=== PATIENT | female | born 1990 | race African-American/Black ===

== ENCOUNTER 2018-06-16 11:33 | Emergency (ER) | payer OTHER ==
[2018-06-16 12:50] LABS: #Basophils 0.1 thou/uL (0.0-0.2); #Eosinphils 0.2 thou/uL (0.0-0.7); #Lymphocytes 3.8 thou/uL (1.20-3.40); #Monocytes 0.9 thou/uL (0.11-0.59); #Neutrophils 3.4 thou/uL (1.40-6.50); %Basophils 1.1 % (0.0-1.0); %Eosinophils 2.9 % (0.0-10.0); %Lymphocytes 45.8 % (21.0-51.0); %Monocytes 10.1 % (0.0-10.0); %Neutrophils 40.1 % (42.0-75.0); Mean Corpuscular Hemoglobin 26.9 pg (27.0-31.0); Mean Corpuscular Volume 84.2 fL (78.0-98.0); Mean Platelet Volume 6.3 fL (7.4-10.4); Platelet Count 502 thou/uL (130-400); RBC Distribution Width 12.7 % (11.5-14.5); Red Blood Cell (RBC) Count 4.47 mill/uL (4.20-5.40); White Blood Cell (WBC) Count 8.4 thou/uL (4.8-10.8)
[2018-06-16 12:55] LABS: Bilirubin Negative (Negative); Blood, Urine Large (Negative); Clarity CLOUDY (Clear); Glucose, Urine (Dipstick) Negative (Negative); Leukocyte Trace (Negative); Nitrite Negative (Negative); Protein, Urine (Dipstick) 30 mg/dL (Neg-Trace); Specific Gravity, Urine 1.024 (1.002-1.036)
[2018-06-16 13:00] LABS: Bacteria/HPF Rare-Few HPF (None Seen); Hyaline Casts/LPF 0-3 HYALINE CAST LPF (0-3 Hyaline); Pathc Cast-AUWi Flag 0.29 (0-2.49); RBC/HPF GREATER THAN 50-TNTC HPF (0-3)
[2018-06-16 13:06] LABS: Renal Epithelial None Seen HPF (0-3); Transitional Epithelial NONE SEEN HPF (0-3)
--- NOTE | 2018-06-16 15:02 | ULT ---
PELVIC ULTRASOUND: Date: 06/16/18 HISTORY: Vaginal bleeding in a patient with positive . Quantitative beta HCG level is 498.7. FINDINGS: Multiple transabdominal and endovaginal sonographic images of the pelvis are obtained. The uterus measures 8.5 cm x 4.5 cm x 6.7 cm. There is a fluid collection seen within the endometrial canal. A pole or yolk sac are not visualized. The mean sac diameter is approximately 0.62 cm, which corresponds to gestational age by ultrasound of 5 weeks/2 days. The right ovary measures 3.5 cm x 1.8 cm x 2.2 cm. The left ovary measures 3.7 cm x 2.1 cm x 2.8 cm. There is an anechoic structure seen within the left ovary measuring approximately 1.7 cm, which may r epresent a small left ovarian cyst. There is a hypoechoic area within the right ovary measuring 1.9 c m in maximal dimensions. This could potentially represent corpus luteal cysts, but continued follow-u p is recommended. Doppler evaluation of each ovary with spectral analysis and color flow evaluation demonstrates arteri al flow in each ovary. No free fluid is seen in the cul-de-sac. IMPRESSION: 1. Fluid collection within the endometrial canal. A pole or yolk sac are not visualized to def initely suggest that this represents an intrauterine gestation. While ectopic cannot be exc luded based on this examination, findings are probably related to very early intrauterine gestation. Gestational age by mean sac diameter is 5 weeks/2 days. Continued follow-up is recommended, as well a s follow-up beta HCG level. 2. Small left ovarian cyst with hypoechoic cystic appearing structure in the right ovary which may r epresent corpus luteal cyst. This can be re-evaluated on follow-up exam. POS: JESICA
[2018-06-19 00:55] LABS: Chlamydia by PCR Not Detected (NotDetected); GC by PCR Not Detected (NotDetected)
== END 2018-06-16 13:50 | disposition home or self-care (01) ==
LOC: ERS 11:33
DX: O20.0 Threatened abortion (principal); Z3A.01 Less than 8 weeks gestation of pregnancy
CPT/HCPCS: 36415; 76856; 81003; 81015; 84702; 85025; 86900; 86901; 87480; 87491; 87510; 87591; 87660

== ENCOUNTER 2018-11-06 15:56 | Emergency (ER) | payer OTHER ==
[2018-11-06 17:18] LABS: Bacteria/HPF None Seen HPF (None Seen); Bilirubin Negative (Negative); Blood, Urine 2+ (Negative); Clarity Clear (Clear); Glucose, Urine (Dipstick) Normal (Negative); Leukocyte Negative Leu/uL (Negative); Nitrite Negative (Negative); Protein, Urine (Dipstick) 20 mg/dL (Neg-Trace); RBC/HPF 21-50 HPF (0-3); Urobilinogen Normal mg/dL (Less than 2); WBC/HPF 0-3 HPF (0-3)
[2018-11-06 18:05] LABS: Pregnancy Test - Urine (BHCG) Negative (Negative); Pregu Control Background? CLEAR/WHITE (CLR/WHITE); Pregu Control Bar Appear? YES (CONTROL BAR); Specific Gravity 1.028 (1.002-1.036)
== END 2018-11-06 18:16 | disposition home or self-care (01) ==
LOC: ERS 15:56
DX: R10.9 Unspecified abdominal pain (principal)
CPT/HCPCS: 81003; 81015; 81025; 99284

== ENCOUNTER 2019-06-18 15:08 | Outpatient (CLI) | payer OTHER | END 2019-06-18 15:09 | disposition home or self-care (01) | LOC: CTENTCT 15:08 | PROVIDERS: ATTEND Otolaryngology Plastic Surgery within the Head & Neck | DX: J01.91 Acute recurrent sinusitis, unspecified (principal) | CPT/HCPCS: 70486 ==

== ENCOUNTER 2019-06-26 10:46 | Day surgery (SDC) | payer OTHER ==
[~2019-06-26 10:46] MED LIST: Dexamethasone 20 MG/5 ML VIAL ONE; Glycopyrrolate 0.2 MG/ML 5 ML SYRINGE ONE; Lidocaine 1% PF 5 ML VIAL ONE; Ondansetron PF 4 MG/2 ML Vial ONE; PROPOFOL 200 MG/20 ML VIAL ONE; Rocuronium Bromide 10 MG/ML (10ML VIAL) ONE
[2019-06-26] MEDS ORDERED: AFRIN NASAL MIST 15 ML BOT ONE ×2 (11:15→12:34)
[2019-06-26 11:45] LABS: BHCG - Serum Negative (NEGATIVE); Pregs Control Background? CLEAR/WHITE (CLR/WHITE); Pregs Control Bar Appear? YES (CONTROL BAR)
[2019-06-26] MEDS ORDERED: Lidocaine 1% w/Epinephrine 1:100K 20 ML VIAL ONE (12:33)
[2019-06-26] MEDS ORDERED: Fentanyl 250 MCG/5 ML VIAL ONE (13:11)
[2019-06-26] MEDS ORDERED: Ferric Subsulfate (ASTRINGYN) 8 ML VIAL ONE (13:34)
[2019-06-26] MEDS ORDERED: Fentanyl 100 MCG/2 ML VIAL ONE (14:34)
--- NOTE | 2019-06-27 09:24 | OP ---
DATE OF PROCEDURE: 06/26/2019 PREOPERATIVE DIAGNOSES: 1. Chronic rhinosinusitis. 2. Nasal septal deviation. 3. Bilateral inferior turbinate hypertrophy. 4. Chronic adenotonsillitis. 5. Adenotonsillar hypertrophy. 6. Nasal obstruction. POSTOPERATIVE DIAGNOSES: 1. Chronic rhinosinusitis. 2. Nasal septal deviation. 3. Bilateral inferior turbinate hypertrophy. 4. Chronic adenotonsillitis. 5. Adenotonsillar hypertrophy. 6. Nasal obstruction. PROCEDURES PERFORMED: 1. Bilateral endoscopic sinus surgery, total ethmoidectomies with sphenoidotomies. 2. Bilateral endoscopic sinus surgery, maxillary antrostomies. 3. Bilateral endoscopic sinus surgery, frontal sinusotomies. 4. Nasal septoplasty. 5. Bilateral inferior turbinate submucosal resection. 6. Tonsillectomy and adenoidectomy. ESTIMATED BLOOD LOSS: 50 mL. COMPLICATIONS: None. ANESTHESIA: GETA. PROCEDURE IN DETAIL: TONSILLECTOMY AND ADENOIDECTOMY: After consent was obtained, the patient was identified, brought to the operating room, and placed on the operating table in the supine position. General endotracheal anesthesia and intravenous access were obtained and we proceeded with positioning the patient for oropharyngeal surgery. Oropharyngeal exposure was obtained with a Julián-Richardson mouth gag after a head drape was placed and secured with a towel clip. The Julián-Richardson mouth gag was then suspended from the Miller tray and palatal elevation was achieved with a red rubber catheter. The right tonsil was addressed first. We used a curved Allis to grasp the tonsil and retract it medially as an anterior pillar incision was made. The retrotonsillar fascial plane was then established and blunt dissection was performed with the suction cautery. Blood vessels were anticipated, identified, and cauterized as they were encountered. Ultimately, dissection was carried to the posterior tonsillar pillar mucosa which was incised hemostatically, as well as the base of tongue connection. The tonsil was then passed off as a specimen and bleeding points within the tonsillar bed were cauterized under direct visualization. We subsequently turned our attention to the contralateral side, where using a similar technique, a near identical procedure was performed. Again, the tonsil was grasped and retracted medially with a curved Allis. The retrotonsillar fascial plane was established and while the anterior pillar was retracted medially. The hemostatic blunt dissection of the tonsil with a suction cautery was performed with blood vessels anticipated, identified, and cauterized as they were encountered. Again, dissection continued to the base of tongue and posterior tonsillar pillar mucosa which was incised in a hemostatic fashion. The tonsillar beds were then carefully inspected and bleeding points were identified and cauterized with a suction cautery. After this portion of the procedure, hemostasis was completely obtained. Under direct mirror visualization, we visualized the adenoid pad. Under direct mirror visualization, we removed the bulk of the adenoid tissue with the adenoid curette. We then packed the nasopharynx for an appropriate period of time with Ghf-[id number]-hxacddeex tonsillar sponges. After a period of observation, we removed the pack. Under indirect mirror visualization, we obtained hemostasis and vaporization of residual adenoid tissue with electrocautery. The patient's oral cavity was copiously irrigated with iced saline and subsequently suctioned. After completion of the procedure, the nasal cavity and oropharynx were irrigated and suctioned as were the gastric contents. The patient was then awakened and transferred to the recovery room where the patient remained in stable condition prior to discharge to Day Stay. NASAL SEPTOPLASTY AND BILATERAL INFERIOR TURBINATE SUBMUCOSAL RESECTION: Patient was taken to the operating room and placed supine on the table. General endotracheal anesthesia was obtained by the anesthesia staff. Then 1% lidocaine with 1:100,000 epinephrine was injected into the nasal septum as well as the inferior turbinates. The patient was prepped and draped in standard surgical fashion. The Afrin pledgets were then removed. A [place] incision was made on the left nasal septum. Submucoperichondrial dissection was performed bilaterally of the deviated portions of the septum, which included the maxillary crest and the crest deviation, as well as the mid portion of the septum. Cartilage and bony deviation were removed, leaving a generous caudal and dorsal strut. Any straight pieces of cartilage were then placed within the cartilage press, pressed, straightened, and then placed between the mucoperichondrial flaps, which were then closed using a 4-0 gut stitch. The inferior turbinates were then punctured with the submucosal Coblation machine, and 3 separate coblations were delivered to the anterior inferior portion of the inferior turbinates. Following this, the nasal cavity was irrigated. All debris was removed. An orogastric tube was placed. Gastric contents and Baca splints were then placed in the nasal cavity and sutured with a 3-0 silk stitch. BILATERAL ENDOSCOPIC SINUS SURGERY, TOTAL ETHMOIDECTOMY, AND MAXILLARY ANTROSTOMIES: Following this, 1% lidocaine with 1:100,000 epinephrine were injected into the middle turbinates and lateral nasal wall bilaterally. Following this, the 0-degree endoscope was used to visualize the middle turbinate and the middle turbinate was medially fractured using a Hanson elevator. Following this, the uncinate process was identified and was examined. The uncinate process was noted to be inflamed and laterally displaced bilaterally. Following this, a ball-ended probe was used to anteriorly fracture the uncinate process bilaterally. Following this, the 0-degree microdebrider and the up-biting Blakesley forceps were used to remove the uncinate process bilaterally. Following this, the natural maxillary sinus ostia was identified with the 0-degree endoscope and the ball-ended probe. The natural maxillary ostia were then widened using a 40-degree microdebrider and the straight Blakesley forceps bilaterally. Following this, the ethmoidal bulla was identified bilaterally. A 0-degree microdebrider was used to puncture the ethmoidal bulla on its medial and inferior aspect bilaterally. Following this, the 0-degree microdebrider and the up-biting Blakesley forceps were used to remove the ethmoidal bulla. Following this, the grand lamella was identified posterior to this area and was punctured using the 0-degree microdebrider bilaterally. Following this, the ethmoidal cells were opened from the posterior to the anterior using the 0-degree microdebrider, the 40-degree microdebrider and the up-biting Blakesley forceps bilaterally. Following this, the 45-degree endoscope and the 40-degree microdebrider blade were used to further remove the anterior ethmoidal cells to the level of the frontal sinus recess bilaterally. Following this, the 0-degree endoscope was advanced through the previous ethmoidectomies and the anterior wall of the sphenoid sinus was identified. Staying just medial and inferior to the attachment of the superior turbinates to the posterior nasal wall, a sphenoidotomy was created using the Gibbons tip suction bilaterally. Following this, the sphenoidotomies were then widened in a medial and inferior direction using the microdebrider bilaterally. Following this, the 45-degree endoscope along with the 40-degree microdebrider blade were used to further open the anterior ethmoidal cells and expose the frontal sinus ostia bilaterally. Following this, the frontal sinus ostia was widened using the 40-degree microdebrider blade and the up-biting Blakesley forceps bilaterally. Following this, the nasal cavity was irrigated. NasoPore packing was placed within the middle meatus bilaterally. Baca splints were then placed in the nasal septum and secured. The patient tolerated the procedure well. Job ID: [id number]
== END 2019-06-26 16:00 | disposition home or self-care (01) ==
LOC: SDC 10:46
PROVIDERS: ATTEND Otolaryngology Plastic Surgery within the Head & Neck
PROC: 0CTPXZZ Resection of Tonsils, External Approach (ICD-10-PCS; principal; 2019-06-26)
PROC: 0CTQXZZ Resection of Adenoids, External Approach (ICD-10-PCS; principal; 2019-06-26)
PROC: 099X8ZZ Drainage of Left Sphenoid Sinus, Via Natural or Artificial Opening Endoscopic (ICD-10-PCS; principal; 2019-06-26)
PROC: 09BM8ZZ Excision of Nasal Septum, Via Natural or Artificial Opening Endoscopic (ICD-10-PCS; principal; 2019-06-26)
PROC: 09BV8ZZ Excision of Left Ethmoid Sinus, Via Natural or Artificial Opening Endoscopic (ICD-10-PCS; principal; 2019-06-26)
PROC: 09BL8ZZ Excision of Nasal Turbinate, Via Natural or Artificial Opening Endoscopic (ICD-10-PCS; principal; 2019-06-26)
PROC: 09BS8ZZ Excision of Right Frontal Sinus, Via Natural or Artificial Opening Endoscopic (ICD-10-PCS; principal; 2019-06-26)
PROC: 099R8ZZ Drainage of Left Maxillary Sinus, Via Natural or Artificial Opening Endoscopic (ICD-10-PCS; principal; 2019-06-26)
PROC: 099W8ZZ Drainage of Right Sphenoid Sinus, Via Natural or Artificial Opening Endoscopic (ICD-10-PCS; principal; 2019-06-26)
PROC: 09BU8ZZ Excision of Right Ethmoid Sinus, Via Natural or Artificial Opening Endoscopic (ICD-10-PCS; principal; 2019-06-26)
PROC: 09BT8ZZ Excision of Left Frontal Sinus, Via Natural or Artificial Opening Endoscopic (ICD-10-PCS; principal; 2019-06-26)
PROC: 099Q8ZZ Drainage of Right Maxillary Sinus, Via Natural or Artificial Opening Endoscopic (ICD-10-PCS; principal; 2019-06-26)
DX: J35.03 Chronic tonsillitis and adenoiditis (principal); J32.8 Other chronic sinusitis; J34.2 Deviated nasal septum; J34.3 Hypertrophy of nasal turbinates; J33.9 Nasal polyp, unspecified; J34.89 Other specified disorders of nose and nasal sinuses; Z88.0 Allergy status to penicillin; Z88.6 Allergy status to analgesic agent
CPT/HCPCS: 36415; 84703; 85014; 88304; J1100; J2001; J2405; J2704; J3010

== ENCOUNTER 2020-03-20 10:48 | Outpatient (CLI) | payer BC, OTHER ==
[2020-03-20 17:15] LABS: SARS-CoV-2 MS2 Positive; SARS-CoV-2 N Gene Negative; SARS-CoV-2 S Gene Negative; SARS-CoV-2 by NAA Not Detected (NotDetected); SARS-CoV-2 orf1ab Negative
== END 2020-03-20 10:49 | disposition home or self-care (01) ==
LOC: LABBT 10:48
PROVIDERS: ATTEND Obstetrics & Gynecology
DX: Z01.812 Encounter for preprocedural laboratory examination (principal); Z20.828 Contact with and (suspected) exposure to other viral communicable diseases
CPT/HCPCS: 87635; U0003

== ENCOUNTER 2020-03-24 05:30 | Inpatient (IN) | payer BC, OTHER ==
[2020-03-24] MEDS ORDERED: NS w/ Oxytocin 10 units 500 ML IV SCH (05:42)
[2020-03-24] MEDS ORDERED: Butorphanol Tartrate 1 MG/ML VIAL SLOW IVP PRN (05:42)
[2020-03-24] MEDS ORDERED: Carboprost 250 MCG/ML AMP IM PRN (05:42)
[2020-03-24] MEDS ORDERED: Misoprostol 200 MCG TAB PR PRN (05:42)
[2020-03-24] MEDS ORDERED: Ondansetron PF 4 MG/2 ML Vial IVP PRN ×2 (05:42→11:35)
[2020-03-24] MEDS ORDERED: NS / Oxytocin 40 units/1000ml 1,000 ML IV PRN (05:42)
[2020-03-24] MEDS ORDERED: Acetaminophen 500 MG TAB PO PRN (05:42)
[2020-03-24] MEDS ORDERED: HYDROcodone/Acetaminophen 5/325 mg Tablet PO PRN (05:42)
[2020-03-24] MEDS ORDERED: Lidocaine 1% (PF) 30 ML VIAL SC PRN (05:42)
[2020-03-24] MEDS ORDERED: Diphenoxylate HCl/Atropine Tablet PO PRN (05:42)
[2020-03-24] MEDS ORDERED: hydrALAZINE 20 MG/ML VIAL SLOW IVP PRN ×2 (05:42→14:16)
[2020-03-24] MEDS ORDERED: Lactated Ringer's 1,000 ML IV SCH (05:42)
[2020-03-24] MEDS ORDERED: Promethazine HCl 25 MG/ML VIAL IM PRN ×2 (05:42→11:35)
[2020-03-24 06:15] VITALS: BMI 38.2
[2020-03-24 06:44] LABS: Hemoglobin 10.9 g/dL (12.0-16.0); Mean Corpuscular HGB CONC 33.6 g/dL (32.0-36.0); Mean Corpuscular Hemoglobin 28.9 pg (27.0-31.0); Mean Corpuscular Volume 85.8 fL (78.0-98.0); Mean Platelet Volume 6.9 fL (7.4-10.4); Platelet Count 309 thou/uL (130-400); RBC Distribution Width 12.3 % (11.5-14.5); Red Blood Cell (RBC) Count 3.76 mill/uL (4.20-5.40); White Blood Cell (WBC) Count 6.1 thou/uL (4.8-10.8)
[2020-03-24 07:22] LABS: Syphilis Antibody Nonreactive (Nonreactive); Syphilis Antibody Index 0.05 S/CO (<1.00 Non-Reactive)
[2020-03-24 07:23] LABS: HBSAg Index 0.16 S/CO (0-0.99); Hep B Surf Ag Non-Reactive S/CO (NonReactive)
[2020-03-24] MEDS ORDERED: DISCONTINUE ALL PREVIOUS NARCOTICS FS SCH (07:45)
[2020-03-24] MEDS ORDERED: Bupivacaine 0.5% 20 ML, fentaNYL Citrate/PF 400 MCG in Sodium Chloride 0.9% 72 ML EPIDURAL SCH (07:45)
[2020-03-24] MEDS ORDERED: diphenhydrAMINE 50 MG/ML VIAL IVP PRN (11:35)
[2020-03-24] MEDS ORDERED: Lactated Ringer's 500 ML IV PRN (11:35)
[2020-03-24] MEDS ORDERED: Naloxone HCl 0.4 mg/ml Vial IVP PRN ×2 (11:35)
[2020-03-24] MEDS ORDERED: Acetaminophen 325 MG TAB PO PRN (11:35)
[2020-03-24] MEDS ORDERED: ePHEDrine 50 MG/ML VIAL SLOW IVP PRN (11:35)
[2020-03-24] MEDS ORDERED: Communication Order-Pharmacy FS PRN (11:45)
[2020-03-24] MEDS ORDERED: Fentanyl 4 mcg/Bupivacaine 0.1% Cassette 100 ML EPIDURAL SCH (11:45)
[2020-03-24] MEDS ORDERED: Bupivacaine 0.25% HCL 30 ML VIAL ONE (12:46)
--- NOTE | 2020-03-24 14:15 | PDOC.OPDEL ---
OB Operative/Delivery Note Delivery Dr/Surgeon: Lori Pre-Delivery Diagnosis: medically indicated induction Procedure/Post Delivery Dx: spontaneous vaginal delivery Weeks gestation: 38 Anesthesia: epidural - Findings A Sex: male - 1 min: 9 - 5 min: 9 - Additional Findings/Plan Placenta delivered: spontaneous Repaired Obstetrical Laceration: none Estimated blood loss: 100ml Post delivery plan: routine recovery
[2020-03-24] MEDS ORDERED: Bisacodyl 10 MG SUPP PR PRN (14:16)
[2020-03-24] MEDS ORDERED: Milk Of Magnesia 30 ML UDCUP PO PRN (14:16)
[2020-03-24] MEDS ORDERED: Adacel (T-DAP) 0.5 ML SYRINGE IM ONE (14:16)
[2020-03-24] MEDS ORDERED: Lanolin Ointment 7 GM TUBE TOP PRN (14:16)
[2020-03-24] MEDS ORDERED: Carboprost 250 MCG/ML AMP ONE ×2 (14:28→14:31)
[2020-03-24] MEDS ORDERED: NS / Oxytocin 40 units/1000ml 1,000 ML IV SCH (14:30)
[2020-03-24] MEDS ORDERED: Tranexamic Acid 1,000 MG/10 ML VIAL ONE (14:30)
[2020-03-24] MEDS ORDERED: Acetaminophen/Codeine 30-300mg Tablet PO SCH (16:15)
[2020-03-24] MEDS: traMADol HCl 50 MG TAB PO PRN (18:10)
[2020-03-24] MEDS: Ferrous Sulfate 325 MG TAB PO SCH (18:13)
[2020-03-24] MEDS: Docusate Calcium (SURFAK) 240 MG CAP PO SCH (23:29)
[2020-03-25] MEDS: traMADol HCl 50 MG TAB PO PRN ×3 (00:19→18:22)
--- NOTE | 2020-03-25 07:33 | PDOC.PP ---
Post Progress Note Post Day #: 1 Subjective: Baby doing well. waiting for bilirubin level. Neck muscles are sore. PO intake tolerated: yes Flatus: yes Ambulation: yes Vital Signs (12 hours) Temp Pulse Resp BP 03/25/20 03:37 98.2 F 80 18 110/67 03/25/20 00:16 98.4 F 85 18 103/54 L Weight Weight 230 lb - Physical Examination Abdominal: + bowel sounds, lochia, no distention, appropriately TTP Result Diagrams: 03/24/20 06:32 Additional Labs: Post Labs Hep Bs Antigen Non-Reactive S/CO (NonReactive) 03/24/20 06:32 Blood Type O POSITIVE 03/24/20 06:32 - Assessment/Plan Post day 1. Doing well. Uterine atony resolved. D/c home if baby is discharged..
[2020-03-25] MEDS: Ferrous Sulfate 325 MG TAB PO SCH ×2 (07:54→17:37)
[2020-03-25] MEDS: Docusate Calcium (SURFAK) 240 MG CAP PO SCH ×2 (08:42→21:14)
[2020-03-25] MEDS: Prenatal Vitamin 1 TAB PO SCH (08:42)
[2020-03-25] MEDS: Cyclobenzaprine 10 MG TAB PO PRN ×2 (13:37→21:18)
[2020-03-26] MEDS: traMADol HCl 50 MG TAB PO PRN ×2 (02:05→09:29)
--- NOTE | 2020-03-26 07:37 | PDOC.PP ---
Post Progress Note Post Day #: 2 Subjective: Still having headache and neck stiffness. She describes her head to start pounding when she stands up-more prominent today..Flexeril helped minimally. O:AFVSS. ABDOMEN soft/ non tender fundud firm A/P: Post day 2..Possible Post dural puncture JOE-anesthesia will reevaluate today....Remains afevrile and no other symptoms. Vital Signs (12 hours) Temp Pulse Resp BP Pulse Ox 03/25/20 21:10 97.5 F L 86 18 111/58 L 99 Weight Weight 230 lb Result Diagrams: 03/24/20 06:32 Additional Labs: Post Labs Hep Bs Antigen Non-Reactive S/CO (NonReactive) 03/24/20 06:32 Blood Type O POSITIVE 03/24/20 06:32
[2020-03-26] MEDS: Docusate Calcium (SURFAK) 240 MG CAP PO SCH (09:29)
[2020-03-26] MEDS: Ferrous Sulfate 325 MG TAB PO SCH (09:29)
[2020-03-26] MEDS: Prenatal Vitamin 1 TAB PO SCH (09:29)
[2020-03-26 12:34] VITALS: BP 132/70; TEMP 98.5
== END 2020-03-26 16:30 | disposition home or self-care (01) | DRG 807 ==
LOC: L&D 05:30 → 3SW 17:57
PROVIDERS: ADMIT Obstetrics & Gynecology; ATTEND Obstetrics & Gynecology
PROC: 10E0XZZ Delivery of Products of Conception, External Approach (ICD-10-PCS; principal; 2020-03-24)
PROC: 10907ZC Drainage of Amniotic Fluid, Therapeutic from Products of Conception, Via Natural or Artificial Opening (ICD-10-PCS; 2020-03-24)
PROC: 3E0P7VZ Introduction of Hormone into Female Reproductive, Via Natural or Artificial Opening (ICD-10-PCS; 2020-03-24)
PROC: 3E033VJ Introduction of Other Hormone into Peripheral Vein, Percutaneous Approach (ICD-10-PCS; 2020-03-24)
DX: O75.89 Other specified complications of labor and delivery (principal); Z37.0 Single live birth; O74.5 Spinal and epidural anesthesia-induced headache during labor and delivery; Z20.828 Contact with and (suspected) exposure to other viral communicable diseases
CPT/HCPCS: 36415; 51702; 85027; 86780; 86850; 86900; 86901; 87340; J2590; J3010; J3490; S0020

== ENCOUNTER 2021-01-02 20:47 | Emergency (ER) | payer BC, SELFPAY | END 2021-01-02 23:33 | disposition home or self-care (01) | LOC: ERS 20:47 | DX: G56.01 Carpal tunnel syndrome, right upper limb (principal); Z79.899 Other long term (current) drug therapy ==

== ENCOUNTER 2021-04-26 09:50 | Emergency (ER) | payer BC, OTHER ==
[2021-04-26 10:37] LABS: Hemoglobin 13.2 g/dL (12.0-16.0); Mean Corpuscular HGB CONC 32.6 g/dL (32.0-36.0); Mean Corpuscular Volume 85.9 fL (78.0-98.0); Mean Platelet Volume 6.4 fL (7.4-10.4); Platelet Count 408 thou/uL (130-400); RBC Distribution Width 12.3 % (11.5-14.5); Red Blood Cell (RBC) Count 4.71 mill/uL (4.20-5.40); White Blood Cell (WBC) Count 5.6 thou/uL (4.8-10.8)
[2021-04-26 10:41] LABS: BHCG - Serum Negative (NEGATIVE); Pregs Control Background? CLEAR/WHITE (CLR/WHITE); Pregs Control Bar Appear? YES (CONTROL BAR)
[2021-04-26 10:53] LABS: ALT (SGPT) 18 U/L (8-55); AST (SGOT) 22 U/L (5-34); Albumin 4.2 g/dL (3.5-5.0); Alkaline Phosphatase 94 U/L (40-110); Anion Gap 14 mmol/L (10-20); BUN (Urea Nitrogen) 8 mg/dL (7.0-18.7); Bilirubin, Total 0.3 mg/dL (0.2-1.2); Calc. Creatinine Clearance 0 mL/min (70-130); Calcium 9.4 mg/dL (7.8-10.44); Carbon Dioxide 22 mmol/L (22-29); Chloride 105 mmol/L (98-107); Globulin 3.9 g/dL (2.4-3.5); Glucose 95 mg/dL (70-105); Potassium 3.6 mmol/L (3.5-5.1); Protein, Total 8.1 g/dL (6.0-8.3); Sodium 137 mmol/L (136-145)
[2021-04-26 11:15] LABS: #Lymphocytes 1.1 thou/uL (1.20-3.40); #Monocytes 0.7 thou/uL (0.11-0.59); #Neutrophils 3.8 thou/uL (1.40-6.50); %Basophils 0.1 % (0.0-1.0); %Eosinophils 0.8 % (0.0-10.0); %Lymphocytes 19.3 % (21.0-51.0); %Monocytes 12.2 % (0.0-10.0); %Neutrophils 67.7 % (42.0-75.0); Band 3 % (5-11); Lymphocytes 18 % (21-51); MDiff Complete? YES; Monocytes 12 % (0-10); Neutrophil 66 % (42-75); RBC Morphology Normal
[2021-04-26] MEDS ORDERED: Acetaminophen 500 MG TAB ONE (11:25)
[2021-04-26 21:45] LABS: SARS-CoV-2 PCR by NAA DETECTED (NotDetected)
== END 2021-04-26 12:34 | disposition home or self-care (01) ==
LOC: ERS 09:50
DX: U07.1 COVID-19 (principal); J11.1 Influenza due to unidentified influenza virus with other respiratory manifestations; R00.0 Tachycardia, unspecified; Z79.899 Other long term (current) drug therapy
CPT/HCPCS: 36415; 71045; 80053; 83605; 84703; 85025; 85379; 87804; 93005; U0003; U0005